=== PATIENT | female | born 2000 | race Caucasian/White ===

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

== ENCOUNTER → 2019-02-17 | Outpatient (REF) | payer OTHER ==
[~2019-02-17] MED LIST changes: +IRON27TA2 PO; +PRENTAB45 PO; +PRENTAB9 PO; +ZANTTAB PO
[2019-02-17 18:01] LABS: HEMOGLOBIN 10.9 g/dl (12.0-15.5); MEAN CORPUSCULAR HEMOGLOBIN 27.7 pg (27.0-33.0); MEAN CORPUSCULAR HGB CONC 32.1 g/dl (32.0-36.5); MEAN CORPUSCULAR VOLUME 86.3 fl (80.0-96.0); PLATELET COUNT, AUTOMATED 223 10^3/uL (150-450); RED BLOOD COUNT 3.94 10^6/uL (4.00-5.40); WHITE BLOOD COUNT 11.9 10^3/uL (4.0-10.0)
== END ==
LOC: M LABSMT 17:01
PROVIDERS: ATTEND Advanced Practice Midwife
DX: O99.013 Anemia complicating pregnancy, third trimester (principal)

== ENCOUNTER → 2019-02-19 | Outpatient (REF) | payer OTHER | LOC: M LAB REF 17:02 | PROVIDERS: ATTEND Advanced Practice Midwife | DX: O99.013 Anemia complicating pregnancy, third trimester (principal); Z3A.00 Weeks of gestation of pregnancy not specified ==

== ENCOUNTER → 2019-02-19 | Outpatient (CLI) | payer OTHER | LOC: M SMT 11:43 | PROVIDERS: ATTEND Advanced Practice Midwife | DX: O99.013 Anemia complicating pregnancy, third trimester (principal); Z3A.00 Weeks of gestation of pregnancy not specified ==

== ENCOUNTER 2019-02-21 21:08 | Outpatient (CLI) | payer OTHER ==
[~2019-02-21] VITALS: Ht 160 cm; Wt 69.9 kg
[~2019-02-21 21:08] MED LIST changes: -IRON27TA2 PO; -PRENTAB9 PO; -ZANTTAB PO
[2019-02-21 21:19] VITALS: BP 111/72
[2019-02-21] MEDS ORDERED: IRON27TA2 PO (21:25)
[2019-02-21] MEDS ORDERED: PRENTAB9 PO (21:25)
[2019-02-21] MEDS ORDERED: ZANTTAB PO (21:25)
== END 2019-02-21 21:45 | disposition home or self-care (01) ==
LOC: M LDO 21:08
PROVIDERS: ATTEND Specialist
DX: O26.893 Other specified pregnancy related conditions, third trimester (principal); O47.1 False labor at or after 37 completed weeks of gestation; Z3A.37 37 weeks gestation of pregnancy
CPT/HCPCS: 59025; G0378; G0463

== ENCOUNTER 2019-03-09 06:54 | Inpatient (IN) | payer OTHER ==
[~2019-03-09] VITALS: Ht 160 cm; Wt 71.7 kg
[2019-03-09] VITALS (25 sets, daily range): BP systolic 100–164; BP diastolic 55–118
[~2019-03-09 06:54] MED LIST changes: +IRON27TA2 PO; +PRENTAB9 PO; +ZANTTAB PO
[2019-03-09] MEDS ORDERED: LACTATED RINGER'S 1000 ML IV STA (08:33)
--- NOTE | 2019-03-09 08:47 | NUR ---
L&D H&P HPI: 18 year old at 39+2 weeks estimated gestation. Expected date of confinement: 03/14/2019. dated by a 7 week first trimester ultrasound. Presents today for a scheduled elective induction of labor, non-medically indicated. Denies vaginal bleeding, loss of fluid, or uterine contractions. Reports regular movement. course uncomplicated thus far. labs: Blood type A+, antibody screen negative, rubella immune, VDRL nonreactive , hepatitis B surface antigen negative, HIV negative, hepatitis C antibody negative, GC/CT negative, aneuploidy/maternal serum screening: Panorama low risk, XY, 1 hour glucose challenge test: 107, GBS negative Vaccinations: Tdap. 01/04/2019 Radiology/OB US: no anomalies or placental abnormalities detected. History Past medical history: None Surgical history: D&C 1, laparoscopic left ovarian cystectomy 2015 Medications: vitamin Allergies: NKDA [employer] history:. No STI OB history: SAB 1 Social history:. No tobacco, alcohol or drug use Family history:. Osteogenesis imperfecta (patient's mother and brother). Patient does not carry the gene Objective Vitals: Normotensive, normal heart rate, afebrile Heart: Regular rate and rhythm. No murmurs, rubs or gallops. Lungs: Clear to auscultation bilaterally. No wheezes, crackles, rales or rhonchi. Abdomen: Uterine fundal height consistent with dates. No guarding or rebound tenderness. Extremities: No clubbing, cyanosis or edema. Normal deep tendon reflexes. Sterile vaginal exam: 1 cm, 90 %effacement, -3 station/posterior, cephalic, intact External monitoring: heart rate category 1 Tocodynamometer: contractions occurring intermittently Assessment/Plan 18 year old at 39+2 weeks gestation. Diagnosis: Full term gestation at 39+2 weeks, desiring elective, non-medically indicated induction of labor. Risks of induction have been reviewed. Reassuring and maternal status. -Admit to labor and delivery with routine labs and orders -External monitoring and tocodynamometer -Pediatrics and anesthesia consultations as needed. -Start with cervical ripening via misoprostol [address] Lawrence Atkins, DO, FACOG
[2019-03-09 09:06] LABS: HEMATOCRIT 34.7 % (36.0-47.0); HEMOGLOBIN 11.1 g/dl (12.0-15.5); MEAN CORPUSCULAR HEMOGLOBIN 27.5 pg (27.0-33.0); MEAN CORPUSCULAR VOLUME 86.1 fl (80.0-96.0); PLATELET COUNT, AUTOMATED 202 10^3/uL (150-450); RED BLOOD COUNT 4.03 10^6/uL (4.00-5.40); WHITE BLOOD COUNT 10.7 10^3/uL (4.0-10.0)
[2019-03-09] MEDS: miSOPROStol 50 MCG 1/2 TAB (S0191) SL SCH ×2 (09:30→14:26)
[2019-03-09] MEDS ORDERED: PENICILLIN G POTASSIUM IV 5 MU in D5W MINI-BAG PLUS 100 ML IV STA (18:40)
--- NOTE | 2019-03-09 18:45 | NUR ---
Progress Note Pt has had 2 doses of misoprostol 50mcg SL. Starting to feel more uncomfortable. No VB/LOF. Has had mucous discharge. Requesting IV pain meds. VSS/normotensive, normal HR, afebrile SVE: /-3; Cook balloon inserted (60ml/40ml) EFM: Cat I [place]: irreg ctx's. A/P: Reassuring maternal and status. Undergoing cervical ripening. -Start GBS prophylaxis w/ PCN (Pt is GBS positive; H&P incorrect) -Augment uterine contractions with low dose Pitocin protocol. -IV Stadol / phenergan for pain control. Odessa Atkins DO
[2019-03-09] MEDS: LR 1,000 ML IV SCH (18:57)
[2019-03-09] MEDS ORDERED: BUTORPHANOL 2 MG/ML INJ (J0595) IV ONE (19:30)
[2019-03-09] MEDS ORDERED: PROMETHAZINE INJ 25 MG/ML VIAL (J2550) IV ONE (19:30)
[2019-03-09] MEDS ORDERED: OXYTOCIN DRIP 30 UNITS in APPROPRIATE DILUENT 1 EA IV SCH (20:00)
[2019-03-09] MEDS ORDERED: FENTANYL 2MCG/ML ROPIVACAINE 0.2% IN 0.9% NACL 100ML IVBAG As Ordered ONE (22:16)
[2019-03-09] MEDS ORDERED: PENICILLIN G POTASSIUM IV 2.5 MU in APPROPRIATE DILUENT 1 EA IV SCH (23:00)
[2019-03-09] MEDS ORDERED: FENTANYL/ROPIVACAINE/NACL BAG 100 ML EPIDURAL SCH (23:45)
[2019-03-09] MEDS ORDERED: diphenhydrAMINE INJ 50MG/ML VIAL (J1200) IV PRN (23:45)
[2019-03-09] MEDS ORDERED: NALOXONE INJ 0.4 MG/1 ML VIAL (J2310) IV PRN (23:45)
[2019-03-09] MEDS ORDERED: REFRIGERATOR IV KEYS XX PRN (23:45)
[2019-03-09] MEDS ORDERED: LACTATED RINGER'S 1000 ML IV PRN (23:45)
[2019-03-09] MEDS ORDERED: ONDANSETRON 4MG/2ML VIAL (J2405) IV PRN (23:45)
[2019-03-09] MEDS ORDERED: EPIDURAL/PCA KEYS XX PRN (23:45)
[2019-03-09] MEDS ORDERED: ePHEDrine SULFATE 25 MG/5 ML(5MG/ML) SYRINGE IV PRN (23:45)
[2019-03-09] MEDS ORDERED: EPIDURAL COMMENT XX SCH (23:45)
[2019-03-10] VITALS (16 sets, daily range): BP systolic 104–126; BP diastolic 56–75
[2019-03-10] MEDS: LR 1,000 ML IV SCH (00:11)
[2019-03-10] MEDS ORDERED: LR 1,000 ML IV SCH (02:22)
[2019-03-10] MEDS ORDERED: OXYTOCIN DRIP 30 UNITS in APPROPRIATE DILUENT 1 EA IV SCH (02:22)
[2019-03-10] MEDS ORDERED: IBUPROFEN 600 MG TAB PO PRN (02:30)
[2019-03-10] MEDS ORDERED: RHOGAM 300 MCG (1500 IU) INJ (J2790) IM SCH (02:30)
[2019-03-10] MEDS ORDERED: ACETAMINOPHEN TAB 650MG DOSE (2X325MG) PO PRN (02:30)
[2019-03-10] MEDS ORDERED: ACETAMINOPHEN 500 MG TAB PO PRN (02:30)
[2019-03-10] MEDS ORDERED: DIBUCAINE 1% OINTMENT 30GM TOP PRN (02:30)
[2019-03-10] MEDS ORDERED: MEASLES,MUMPS,RUBELLA VACCINE INJ (MMR-II) (90707) SC SCH (02:30)
[2019-03-10] MEDS ORDERED: PROMETHAZINE 25 MG TAB PO PRN (02:30)
[2019-03-10] MEDS ORDERED: IBUPROFEN 800 MG TAB PO PRN (02:30)
[2019-03-10] MEDS ORDERED: DOCUSATE SODIUM 100 MG CAP PO PRN (02:30)
[2019-03-10] MEDS ORDERED: ONDANSETRON 4MG/2ML VIAL (J2405) IV PRN (02:30)
--- NOTE | 2019-03-10 02:30 | NUR ---
Delivery note Spontaneous vaginal delivery Estimated gestational age at delivery: 39+3 weeks The active phase and second stage of labor progressed in normal fashion with epidural anesthesia. Patient received Pitocin labor augmentation. She received a full course of GBS prophylaxis. Pt had screened GBS+. FHR Cat I throughout labor. The head delivered left occiput anterior and restituted left occiput transverse. No nuchal cord was noted. The anterior shoulder delivered with gentle downward guidance and the remainder of the body delivered with ease. Cord clamping was delayed for approximately 1 minute after delivery. After doubly clamping the cord, I allowed FOB to cut the cord. The was placed on the patient's chest for immediate bonding. data: Apgars 7 and 8. weight 3190 grams 7 pounds, 1 ounces. Time of delivery: 0157. Sex: Male, named Rafita. The third stage of labor was actively managed with a bolus of IV Pitocin (30 units in 500 mL of normal saline). The placenta delivered completely intact with no missing cotyledons at 0202. A three-vessel cord with a central insertion was noted. After delivery of the placenta, the uterine fundus was approximately 2 cm below the umbilicus and firm. IV Pitocin was continued to maintain uterine tone. A normal, low level of uterine bleeding was noted. The cervix, vagina, vulva and perineum were inspected for lacerations. A second degree laceration was noted. This was repaired with 3-0 Vicryl in typical fashion. Excellent hemostasis was noted. Estimated blood loss: 300ml. All sponges, needles, and instruments were accounted for per [employer] department protocol. Lawrence Atkins D.O., F.A.Christopher.Too.
[2019-03-10] MEDS ORDERED: ACET-683 PO (02:37)
[2019-03-10] MEDS ORDERED: DIBU10OI TOP (02:37)
[2019-03-10] MEDS ORDERED: IBUP80TA PO (02:37)
[2019-03-10] MEDS: PRENATAL VITAMINS CHEWABLE TABLET PO SCH (08:51)
[2019-03-11 05:50] VITALS: BP 97/56
[2019-03-11] MEDS: PRENATAL VITAMINS CHEWABLE TABLET PO SCH (08:11)
[2019-03-11 18:07] VITALS: BP 111/67
[2019-03-12 06:05] VITALS: BP 116/65
[2019-03-12] MEDS: PRENATAL VITAMINS CHEWABLE TABLET PO SCH (07:42)
== END 2019-03-12 11:00 | disposition home or self-care (01) | DRG 807 ==
LOC: M LDI 06:54 → M OBS 03-10 04:43
PROVIDERS: ADMIT Advanced Practice Midwife; ATTEND Obstetrics & Gynecology
PROC: 3E0P7GC Introduction of Other Therapeutic Substance into Female Reproductive, Via Natural or Artificial Opening (ICD-10-PCS; 2019-03-09)
PROC: 10E0XZZ Delivery of Products of Conception, External Approach (ICD-10-PCS; principal; 2019-03-10)
PROC: 0KQM0ZZ Repair Perineum Muscle, Open Approach (ICD-10-PCS; 2019-03-10)
DX: O70.1 Second degree perineal laceration during delivery (principal); Z37.0 Single live birth; Z3A.39 39 weeks gestation of pregnancy